=== PATIENT | female | born 1970 | race Caucasian/White ===

== ENCOUNTER 2016-10-24 11:04 | Emergency (ER) | payer OTHER ==
[~2016-10-24] VITALS: Ht 154.9 cm; Wt 50.0 kg
[2016-10-24] MEDS ORDERED: ALBU17IN INH (13:58)
[2016-10-24] MEDS ORDERED: TESS100C PO (13:58)
--- NOTE | 2016-10-24 14:06 | REP ---
Chest two views HISTORY: Cough Comparison: None The lungs are clear. The heart is normal in size. The pulmonary vasculature is normal in appearance. The bony structure is intact. IMPRESSION: No acute disease. Signed by Jose Rizvi MD 10/24/2016 01:57 P
[2016-10-24 14:33] VITALS: BP 122/75
--- NOTE | 2016-10-25 09:33 | ECGEPIP ---
Stationary ECG Study [facility] - ED Test Date: 2016-10-24 Pat Name: VIVEK RODRIGUEZ Department: Room: - Gender: F [employer]: rn : [id number] Requested By: DYLAN Castillo Order Number: [id number] Reading MD: Jaz Camarillo Measurements Intervals [place] Rate: 67 P: 84 WA: 148 QRS: 75 QRSD: 78 T: 69 QT: 384 QTc: 406 Interpretive Statements SINUS RHYTHM WITH SINUS ARRHYTHMIA DELAYED R PROGRESSION NO PRIOR FOR COMPARISON Electronically Signed On 10-25-2016 9:32:51 EDT by Jaz Camarillo
== END 2016-10-24 14:35 | disposition home or self-care (01) ==
LOC: M ED 11:04
DX: S29.011A Strain of muscle and tendon of front wall of thorax, initial encounter (principal); R05 Cough; I25.10 Atherosclerotic heart disease of native coronary artery without angina pectoris; I25.2 Old myocardial infarction; X58.XXXA Exposure to other specified factors, initial encounter; Y92.89 Other specified places as the place of occurrence of the external cause; Y93.89 Activity, other specified; Y99.9 Unspecified external cause status

== ENCOUNTER → 2017-04-03 | Outpatient (REF) | payer OTHER ==
[2017-04-07 00:06] LABS: OXCARBAZEPINE 21 ug/mL (10-35)
== END ==
LOC: M LAB REF 18:14
DX: G40.909 Epilepsy, unspecified, not intractable, without status epilepticus (principal)